=== PATIENT | male | born 1965 | race Caucasian/White ===

== ENCOUNTER 2016-08-15 11:54 | Emergency (ER) | payer BC ==
--- NOTE | ~2016-08-15 | ER ---
PATIENT'S NAME: ANCA KIM [facility] AGE: 51 Y [address] ROOM: [place] [address] LOCATION: [facility] ADMIT DATE: 08/15/2016 ER/Outpatient Report DISCHARGE DATE: 08/15/2016 FAMILY PHYSICIAN: PHYSICIAN, NO ATTENDING PHYSICIAN: Umer Fraser Time of Arrival: 1154 hours. Time of Exam: 1156 hours. CHIEF COMPLAINT: Left fourth finger laceration. HISTORY OF PRESENT ILLNESS: The patient states he was working with a skill saw when it cut his left fourth finger. Denies any other injury from the incident. States he has good sensation to the tip of his finger. ALLERGIES: NO KNOWN ALLERGIES. CURRENT MEDICATIONS: On his chart and reviewed by me. PAST MEDICAL HISTORY: Hypertension. PAST SURGICAL HISTORY: Negative. SOCIAL HISTORY: Denies use of tobacco, drugs, or alcohol. Unsure when his last tetanus shot was. REVIEW OF SYSTEMS: All negative other than those mentioned in the HPI. PHYSICAL EXAMINATION: VITAL SIGNS: He weighed 120.2 kg. Blood pressure is 158/104 and O2 saturation was 96% on room air. GENERAL: He is awake, alert, and oriented x4. SKIN: [place], warm, and dry. RESPIRATIONS: Even and nonlabored. Lung sounds are clear throughout. HEART: Regular rate and rhythm. MUSCULOSKELETAL: The patient has a flap-type cut to his fourth left finger. The pad of the finger on the palmar side. Good sensation to the tip of his PATIENT'S NAME: ANCA KIM [facility] AGE: 51 Y [address] ROOM: [place] [address] LOCATION: [facility] ADMIT DATE: 08/15/2016 ER/Outpatient Report DISCHARGE DATE: 08/15/2016 FAMILY PHYSICIAN: PHYSICIAN, NO ATTENDING PHYSICIAN: Umer Fraser finger. Nail bed is not involved. His nail blanches in less than 3 seconds. Good circulation to the finger. Strong radial and ulnar pulses. DIAGNOSTIC DATA: X-ray was completed and reviewed with Dr. Fraser. No bony involvement noted. PROCEDURE: Laceration was anesthetized with 1% plain lidocaine and closed with 4-0 Ethilon x6 stitches. The patient tolerated the procedure well. Edge of the laceration was quite jagged. Discussed with the patient the parts of the flap may not adhere completely. The patient verbalized understanding. IMPRESSION: Finger laceration. PLAN: Finger tube gauze dressing was applied. He is to keep it clean and dry. He can change in 24 hours. Keep it covered of potentially getting dirty, otherwise leave it open. Sutures removal should be in 7-10 days. I gave him a prescription for Keflex t.i.d. x10 days. Follow up with his primary provider as needed. He verbalized understanding. ELIZA ESTEVES APRN FOR MD MICHAEL REEDER/marielos /[id number] d: 08/15/162014 t: 09/08/16 1644, OUTPATIENT REPORT
== END 2016-08-15 13:02 | disposition disaster alternative care site (69) ==
LOC: GACC 11:54
PROC: 0HQGXZZ Repair Left Hand Skin, External Approach (ICD-10-PCS; principal; 2016-08-15)
DX: S61.215A Laceration without foreign body of left ring finger without damage to nail, initial encounter (principal); I10 Essential (primary) hypertension; Z79.899 Other long term (current) drug therapy; W31.2XXA Contact with powered woodworking and forming machines, initial encounter; Y93.89 Activity, other specified